=== PATIENT | female | born 1945 | race Caucasian/White ===

== ENCOUNTER → 2017-04-17 | Outpatient (CLI) | payer MEDICARE ==
--- NOTE | 2017-04-20 08:58 | RSPPFT ---
DATE OF PROCEDURE: 04/16/17 COMMENTS: Spirometry with FVC of 2.9 predicted 2.8, FEV1 of 2.1 predicted 2.2, FEV1/FVC ratio 74% predicted 82%. Lung volumes are within the predicted range as well as the DLCO. IMPRESSION: On the basis of the above, patient has flow values, lung volumes and DLCO within the predicted range.
== END ==
LOC: PHRSP 07:59
PROVIDERS: ATTEND Internal Medicine Pulmonary Disease
DX: J45.909 Unspecified asthma, uncomplicated (principal)
CPT/HCPCS: 94618